=== PATIENT | male | born 1990 | race Caucasian/White ===

== ENCOUNTER 2016-07-09 04:30 | Emergency (ER) | payer BC ==
[~2016-07-09] VITALS: Ht 185.4 cm; Wt 81.6 kg
[~2016-07-09 04:30] MED LIST: HYDR-757 PO; VILA40TA PO
--- NOTE | 2016-07-09 06:54 | ED EENT ---
History of Present Illness General Chief Complaint: Dental Problems/Pain Stated Complaint: DENTAL PAIN-RECENT EXTRACTIONS Nursing Triage Note: Pt here reporting he needs pain meds now for "dry sockets". Recently returned from [place] and states Dr Mcqueen did surgery a couple days ago for extractions and root canal(s). Pt states a temporary cap fell off also. Pt states he needs more Percocet and his Grandma a nurse advised he needed to come here because of the pain. Source: patient Exam Limitations: no limitations History of Present Illness Time seen by provider: 06:49 Initial Comments The patient is a 26-year-old white male who presents this morning with the complaint of severe dental pain. He reports that he had had 2 teeth pulled before [facility] at [facility]. He reports that he has dry sockets and has had severe pain. He was unable to sleep last night. He received prescriptions of hydrocodone from the dentist on 1228 for 3 days and 07/06 also for 3 days. He was also to have his wisdom teeth pulled. He was given first amoxicillin and later clindamycin by the dentist. He reports that he was unable to take the hydrocodone in the last few days because it upset his stomach. He was informed that clindamycin is flammeus for this as well. He apparently has an appointment for next week with Dr. Mcqueen our oral surgeon. 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 Timing/Duration: last week Location: dental Prearrival Treatment: prescription meds Associated Symptoms: poor solids intake Allergies and Home Medications Allergies Coded Allergies: No Known Drug Allergies (Verified , 06/08/12) Home Medications Vilazodone Hydrochloride 40 Mg Tablet 40 MG PO DAILY (Reported) Review of Systems Constitutional: see HPI Eyes: No Symptoms Reported Nose: no symptoms reported Mouth: pain swelling Throat: no symptoms reported Respiratory: no symptoms reported Cardiovascular: no symptoms reported Gastrointestinal: loss of appetite nausea Past Yucilem-Czyslg-Ddjfhw Hx Patient Social History Alcohol Use: Denies Use Recreational Drug Use: No Smoking Status: Current Everyday Smoker Type Used: Cigarettes Recent Foreign Travel: No Contact w/Someone Who Travel: No Recent Infectious Disease Expo: No Recent Hopitalizations: No Physical Abuse Screen: No Sexual Abuse: No Immunizations Up To Date Tetanus Booster (TDap): Less than 5yrs Seasonal Allergies Seasonal Allergies: No Surgeries HX Surgeries: Yes (arm abscess post football injury) Respiratory Hx Respiratory Disorders: No Cardiovascular Hx Cardiac Disorders: No Neurological Hx Neurological Disorders: No Reproductive System Hx Reproductive Disorders: No Genitourinary Hx Genitourinary Disorders: No Gastrointestinal Hx Gastrointestinal Disorders: No Musculoskeletal Hx Musculoskeletal Disorders: No Endocrine Hx Endocrine Disorders: No HEENT HX ENT Disorders: No Cancer Hx Cancer: No Psychosocial Hx Psychiatric Problems: No Integumentary HX Skin/Integumentary Disorder: No Blood Transfusions Hx Blood Disorders: No Physical Exam Vital Signs Vital Sign - Last 12Hours 07/09/16 04:48 Temp 97.6 Pulse 94 Resp 20 B/P 146/88 Pulse Ox 97 O2 Delivery Room Air General Appearance: mild distress Eyes: bilateral eye normal inspection Ears: bilateral ear auricle normal Nose: normal inspection Mouth/Throat: dental tenderness other (evidence of them multiple caries particularly at the wisdom teeth. There is clot and evidence of extraction on the right upper had the molar) Cardiovascular: normal peripheral pulses regular rate, rhythm no edema no gallop no JVD no murmur Respiratory: chest non-tender lungs clear normal breath sounds no respiratory distress no accessory muscle use Progress/Results/Core Measures Results/Orders Vital Signs/I&O Vital Sign - Last 12Hours 07/09/16 04:48 Temp 97.6 Pulse 94 Resp 20 B/P 146/88 Pulse Ox 97 O2 Delivery Room Air Blood Pressure Mean: 107 Departure Impression Impression: Primary Impression: dental pain Disposition: 01 HOME, SELF-CARE Condition: Stable/Unchanged Departure-Patient Inst. Referrals: NO,LOCAL PHYSICIAN (PCP/Family) Primary Care Physician Patient Instructions: Dental Pain (DC) Add. Discharge Instructions: All discharge instructions reviewed with patient and/or family. Voiced understanding. Future management of severe dental issues must be received through dental professionals. Scripts Oxycodone HCl/Acetaminophen (Percocet 5-325 mg Tablet)1 Each Tablet1 Each PO QID #10 TAB Prov:KARTHIK LIU MD 07/09/16 KARTHIK LIU MD Jul 09, 2016 06:54
[2016-07-09] MEDS ORDERED: OXYC-197 PO (07:01)
[2016-07-09 07:11] VITALS: BP 141/82
== END 2016-07-09 07:11 | disposition home or self-care (01) ==
LOC: EDUNIT# 04:30 → ER 04:33
DX: G89.18 Other acute postprocedural pain (principal); K08.409 Partial loss of teeth, unspecified cause, unspecified class; F17.210 Nicotine dependence, cigarettes, uncomplicated
CPT/HCPCS: 99282

== ENCOUNTER 2016-07-29 00:04 | Emergency (ER) | payer BC ==
[~2016-07-29] VITALS: Ht 185.4 cm; Wt 81.9 kg
[~2016-07-29 00:04] MED LIST changes: +OXYC-197 PO
--- OUTSIDE RECORDS SUMMARY | 2016-07-29 00:13 | XMS REPORT | Continuity of Care Document ---
Author Author [facility] Organization [facility] Address Unknown Phone Unavailable Care Team Providers Care Assistant Printer Floor Covering Name Role Phone NO, LOCAL PHYSICIAN PCP Unavailable Insurance Providers Payer Name Policy Number Subscriber Name Relationship [facility] [id number] Hayder Gardiner Nito 18 Self / Same As Patient Advance Directives Directive Response Recorded Date/Time Advance Directives No 07/09/16 4:48am Health Care Power of Amusement Park Ride Mechanic No 07/09/16 4:48am Organ Donor No 07/09/16 4:48am Resuscitation Status Full Code 07/09/16 4:48am Chief Complaint and Reason for Visit Chief Complaint Dental Problems/Pain Reason for Visit dental pain Problems No problem information available. Medications Current Home Medications Medication Dose Units Route Directions Days/Qty Instructions Start Date Vilazodone Hydrochloride 40 Mg 40 Mg Oral Daily 06/08/12 Oxycodone Hcl/Acetaminophen 1 Each 1 Each Oral Four Times Daily 10 11/18 Past Home Medications Medication Directions Ordered Status Hydrocodone Bit/Acetaminophen 1 Each Tablet, 1 - 2 Each Oral Q 4 Hours Discontinued Social History Social History Problem Response Recorded Date/Time Alcohol Use Occasionally Uses 08/10/2012 9:03pm Recreational Drug Use Yes 08/10/2012 9:03pm Recent Foreign Travel No 07/09/2016 4:48am Recent Infectious Disease Exposure No 07/09/2016 4:48am Hospitalization with Isolation Denies 07/09/2016 4:48am Smoking Status Current Everyday Smoker 07/09/2016 4:48am Type Used Cigarettes 07/09/2016 4:48am Recent Hopitalizations No 07/09/2016 4:48am Hospitalization with Isolation Denies 07/09/2016 4:48am Query Response Start Date Stop Date Smoking Status Current Everyday Smoker Hospital Discharge Instructions No hospital discharge instructions. Plan of Care Discharge Date 07/09/16 7:11am Disposition 01 HOME, SELF-CARE Condition at Discharge Stable/Unchanged Instructions/Education Provided Dental Pain (DC) Prescriptions See Medication Section Referrals NO,LOCAL PHYSICIAN - Primary Care Physician Additional Instructions/Education All discharge instructions reviewed with patient and/or family. Voiced understanding. Future management of severe dental issues must be received through dental professionals. Functional Status No functional status results. Allergies, Adverse Reactions, Alerts No known allergies. Immunizations No immunization records. Vital Signs Acute Vital Signs Vital Response Date/Time Temperature (Fahrenheit) 97.6 degrees F (97.6 - 99.5) 07/09/2016 4:48am Temperature (Calculated Celsius) 36.29941 degrees C (36.4 - 37.5) 07/09/2016 4:48am Temperature Source Temporal 07/09/2016 4:48am Pulse Rate (adult) 94 bpm (60 - 90) 07/09/2016 4:48am Respiratory Rate 20 bpm (12 - 24) 07/09/2016 4:48am O2 Sat by Pulse Oximetry 97 % (88 - 100) 07/09/2016 4:48am Blood Pressure 146/88 mm Hg 07/09/2016 4:48am Blood Pressure Mean 107 mm Hg 07/09/2016 4:48am Pain Numeric Pain Scale 10-Worst Possible Pain 07/09/2016 4:48am Height (Feet) 6 feet 07/09/2016 4:48am Height (Inches) 1 inches 07/09/2016 4:48am Height (Calculated Centimeters) 185.865224 cm 07/09/2016 4:48am Weight (Pounds) 180 pounds 07/09/2016 4:48am Weight (Calculated Kilograms) 81.217536 kilograms 07/09/2016 4:48am Capillary Refill Capillary Refill Less Than 3 Seconds 07/09/2016 4:48am Height 6 ft 1 in Weight 180 lb Body Mass Index 23.7 kg/m^2 Results No known relevant diagnostic tests, laboratory data and/or discharge summary. Procedures No known history of procedures. Encounters Encounter Location Arrival/Admit Date Discharge/Depart Date Attending Provider Departed Emergency Room [facility] 07/09/16 4:33am 07/09 7:11am KARTHIK LIU MD Recent Diagnosis
[2016-07-29] MEDS ORDERED: clindamycin (00:25)
[2016-07-29] MEDS ORDERED: NS IV 1000 ML 1,000 ML IV ONE (00:27)
[2016-07-29] MEDS ORDERED: fentaNYL INJECTION 100 MCG/2 ML AMP IVP STA (00:27)
--- NOTE | 2016-07-29 01:55 | ED Lower Extremity ---
General Chief Complaint: Lower Extremity Stated Complaint: RT LEG PAIN,RED & SWOLLEN Nursing Triage Note: pt reports two nights ago he felt something pop in his r calf. pt reports he had been laying around since but developed redness/swelling to r leg. Nursing Sepsis Screen: Possible Sepsis Risk Source: patient, family Exam Limitations: no limitations History of Present Illness Time seen by provider: 01:05 Initial Comments Here with report of pain to the right lower extremity and swelling with redness. This has been increasing over the last 2 days with markedly increasing redness and swelling tonight. Pain when walking noted. Over-the- counter medications are not helping with the pain. Mild fever reported and noted. No breathing problems reported. Onset: other (2-3 days ago) Severity: moderate Pain/Injury Location: right leg, right knee, right foot, right ankle Method of Injury: unknown Modifying Factors: Improves With Immobilization, Worse With Jarring, Worse With Movement Allergies and Home Medications Allergies Coded Allergies: No Known Drug Allergies (Verified , 06/08/12) Home Medications (Reported) Constitutional: see HPINo chills, fever EENTM: no symptoms reported Respiratory: no symptoms reportedNo cough, No dyspnea on exertion, No short of breath Cardiovascular: no symptoms reportedNo chest pain, No palpitations Gastrointestinal: no symptoms reportedNo nausea, No vomiting Genitourinary: no symptoms reported Musculoskeletal: see HPI joint pain joint swelling muscle pain muscle stiffness Skin: see HPI change in colorNo lesions, No rash Psychiatric/Neurological: No Symptoms Reported All Other Systems Reviewed Negative Unless Noted: Yes Past Qcvypzt-Bxwfqr-Paqqke Hx Patient Social History Alcohol Use: Denies Use Recreational Drug Use: Yes Smoking Status: Current Everyday Smoker Type Used: Cigarettes Recent Foreign Travel: No Contact w/Someone Who Travel: No Recent Infectious Disease Expo: No Recent Hopitalizations: No Physical Abuse Screen: No Sexual Abuse: No Immunizations Up To Date Tetanus Booster (TDap): Less than 5yrs Seasonal Allergies Seasonal Allergies: No Surgeries HX Surgeries: Yes (arm abscess post football injury) Respiratory Hx Respiratory Disorders: No Cardiovascular Hx Cardiac Disorders: No Neurological Hx Neurological Disorders: No Reproductive System Hx Reproductive Disorders: No Genitourinary Hx Genitourinary Disorders: No Gastrointestinal Hx Gastrointestinal Disorders: No Musculoskeletal Hx Musculoskeletal Disorders: No Endocrine Hx Endocrine Disorders: No HEENT HX ENT Disorders: No Cancer Hx Cancer: No Psychosocial Hx Psychiatric Problems: No Integumentary HX Skin/Integumentary Disorder: No Blood Transfusions Hx Blood Disorders: No Reviewed Nursing Assessment Reviewed/Agree w Nursing PMH: Yes Family Medical History Significant Family History: No Pertinent Family Hx Physical Exam Vital Signs Vital Sign - Last 12Hours 07/29/16 00:21 Temp 99.9 Pulse 120 Resp 18 B/P 155/87 Capillary Refill : Less Than 3 Seconds General Appearance: WD/WN mild distress (right leg pain) HEENT: PERRL/EOMI pharynx normal Neck: full range of motion supple Cardiovascular: no murmur tachycardia Respiratory: lungs clear normal breath sounds Gastrointestinal: non tender soft Back: normal inspection no CVA tenderness no vertebral tenderness Hips: bilateral hip non-tender, bilateral hip normal inspection, bilateral hip normal range of motion Legs: right leg soft tissue tenderness, right leg swelling, right leg other ( swelling noted from the area of the knee down to the toes on the right. Erythema noted from the mid calf region down and across the foot completely. Distal pulses intact. Pain with range of motion of the knee, ankle and foot.) Neurologic/Tendon: normal sensation normal motor functions normal tendon functions Neurologic/Psychiatric: alert oriented x 3 Skin: warm/dry other (erythema and swelling as noted above.) Progress/Results/Core Measures Results/Orders Lab Results Laboratory Tests Test 07/29/16 01:55 Range/Units Alanine Aminotransferase (ALT/SGPT) 12 0-55 U/L Albumin 4.0 3.2-4.5 G/DL Alkaline Phosphatase 49 40-136 U/L Anion Gap 12 5-14 MMOL/L Aspartate Amino Transf (AST/SGOT) 10 5-34 U/L BUN/Creatinine Ratio 15 Basophils # (Auto) 0.0 0.0-0.1 10^3/uL Basophils (%) (Auto) 0 0-10 % Blood Urea Nitrogen 11 7-18 MG/DL C-Reactive Protein High Sensitivity 4.88 H 0.00-0.50 MG/DL Calcium Level 9.3 8.5-10.1 MG/DL Carbon Dioxide Level 24 21-32 MMOL/L Chloride Level 102 98-107 MMOL/L Creatinine 0.71 0.60-1.30 MG/DL D-Dimer 1.76 H 0.00-0.49 UG/ML Eosinophils # (Auto) 0.2 0.0-0.3 10^3/uL Eosinophils (%) (Auto) 2 0-10 % Estimat Glomerular Filtration Rate > 60 Glucose Level 95 70-105 MG/DL Hematocrit 36 L 40-54 % Hemoglobin 12.0 L 13.3-17.7 G/DL Lymphocytes # (Auto) 1.6 1.0-4.0 X 10^3 Lymphocytes (%) (Auto) 24 12-44 % Mean Corpuscular Hemoglobin 27 25-34 PG Mean Corpuscular Hemoglobin Concent 34 32-36 G/DL Mean Corpuscular Volume 81 80-99 FL Mean Platelet Volume 10.3 7.4-10.4 FL Monocytes # (Auto) 0.6 0.0-1.0 X 10^3 Monocytes (%) (Auto) 9 0-12 % Neutrophils # (Auto) 4.4 1.8-7.8 X 10^3 Neutrophils (%) (Auto) 65 42-75 % Platelet Count 192 130-400 10^3/uL Potassium Level 3.4 L 3.6-5.0 MMOL/L Red Blood Count 4.42 4.35-5.85 10^6/uL Red Cell Distribution Width 12.5 10.0-14.5 % Sodium Level 138 135-145 MMOL/L Total Bilirubin 0.3 0.1-1.0 MG/DL Total Protein 6.9 6.4-8.2 G/DL White Blood Count 6.8 4.3-11.0 10^3/uL My Orders Orders-HERI MORENO MD Cbc With Automated Diff (07/29/16 00:27) Comprehensive Metabolic Panel (07/29/16 00:27) Hs C Reactive Protein (07/29/16 00:27) Fibrin Degradation Products (07/29/16 00:27) Saline Lock/Iv-Start (07/29/16 00:27) Ns Iv 1000 Ml (Sodium Chloride 0.9%) (07/29/16 00:27) Fentanyl Injection (Sublimaze Injection (07/29/16 00:27) Us Venous Lower Ext Rt (07/29/16 01:30) Fentanyl Injection (Sublimaze Injection (07/29/16 02:30) Ketorolac Injection (Toradol Injection) (07/29/16 02:34) Hydromorphone Injection (Dilaudid Inject (07/29/16 02:34) Hydromorphone Injection (Dilaudid Inject (07/29/16 02:30) Ketorolac Injection (Toradol Injection) (07/29/16 02:30) Enoxaparin Injection (Lovenox Injection) (07/29/16 03:30) Medications Given in ED Current Medications Medications Dose Ordered Sig/Jessie Route Start Time Stop Time Status Last Admin Dose Admin Enoxaparin Sodium 80 mg ONCE ONCE SC 07/29/16 03:30 07/29/16 03:31 DC 07/29/16 04:02 80 MG Fentanyl Citrate 50 mcg ONCE PRN IVP 07/29/16 02:30 07/29/16 02:44 50 MCG Sodium Chloride 1,000 ml @ 0 mls/hr Q0M ONCE IV 07/29/16 00:27 07/29/16 00:29 DC 07/29/16 01:23 0 MLS/HR Vital Signs/I&O Vital Sign - Last 12Hours 07/29/16 00:21 Temp 99.9 Pulse 120 Resp 18 B/P 155/87 Blood Pressure Mean: 109 Progress Note : Progress Note Seen and evaluated. IV, labs, normal saline 1 L bolus, fentanyl 50 g IV and ultrasound right lower extremity ordered. Patient has very poor IV access. Multiple attempts by nursing and myself ultimately successful with small IV to the left wrist per nursing. Unable to draw blood. Artery stick approved for blood draw. Monitor patient. Ultrasound obtained. Has lesser saphenous vein thrombosis noted in the superficial system. Pain controlled after repeat dosing of fentanyl and Dilaudid 1 mg IV. Also received Toradol 30 mg IV. Patient will likely need anticoagulation due to the large thrombosis and history of DVT previously in the right arm. I will initiate Lovenox. Patient has no local physician but is interested in seeking care with Sin Murray M.D. I will send chart to him. We will initiate outpatient treatment anticoagulation with Eliquis. Discharged home with return precautions. Patient verbalize understanding instructions and agreement with plan. Diagnostic Imaging Diagonstic Imaging: Ultrasound Plain Films/CT/US/NM/MRI: leg Comments Thrombosis of the lesser saphenous vein from the calf to the ankle, part of the superficial vein assist him. No evidence of deep venous thrombosis. Per statrad. Reviewed: Reviewed Night [facility] Study Departure Impression Impression: Primary Impression: Acute superficial venous thrombosis of right lower extremity Disposition: HOME, SELF-CARE Condition: Stable Departure-Patient Inst. Decision time for Depature: 04:09 Referrals: NO,LOCAL PHYSICIAN (PCP) Primary Care Physician SIN MURRAY MD Patient Instructions: Deep Vein Thrombosis (Blood Clots in the Legs) Add. Discharge Instructions: All discharge instructions reviewed with patient and/or family. Voiced understanding. You have a superficial thrombosis of the right leg although moderate in size. Instructions for deep vein thrombosis given for information. Take medications as directed. Follow-up with your doctor this week for recheck and further evaluation. Return for worse pain, weakness, breathing problems, swelling or other concerns as needed. You may elevate the leg and you may use warm compresses to the area of concern as needed. Scripts Hydrocodone/Acetaminophen (Hydrocodon-Acetaminoph 7.5-325)1 Each Tablet1 Each PO Q6H #14 TAB Prov:HERI MORENO MD 07/29/16 Apixaban (Eliquis)5 Mg Tablet5 Mg PO BID #60 TAB Start medication after completion of the 10 mg twice daily dosing Prov:HERI MORENO MD 07/29/16 Apixaban (Eliquis)5 Mg [id number] Mg PO BID #14 TAB 2 TABLETS TWICE DAILY X 7 DAYS Prov:HERI MORENO MD 07/29/16 Copy Copies To 1: SIN MURRAY MD, TIMOTHY D MD Jul 29, 2016 01:55
[2016-07-29 02:01] LABS: BASOPHILS % (AUTO) 0 % (0-10); EOSINOPHILS # (AUTO) 0.2 10^3/uL (0.0-0.3); EOSINOPHILS % (AUTO) 2 % (0-10); LYMPHOCYTES # (AUTO) 1.6 X 10^3 (1.0-4.0); LYMPHOCYTES % (AUTO) 24 % (12-44); MEAN CORPUSCULAR HEMOGLOBIN 27 PG (25-34); MEAN CORPUSCULAR HGB CONC 34 G/DL (32-36); MEAN CORPUSCULAR VOLUME 81 FL (80-99); MEAN PLATELET VOLUME 10.3 FL (7.4-10.4); MONOCYTES # (AUTO) 0.6 X 10^3 (0.0-1.0); MONOCYTES % (AUTO) 9 % (0-12); NEUTROPHILS # (AUTO) 4.4 X 10^3 (1.8-7.8); NEUTROPHILS % (AUTO) 65 % (42-75); PLATELET COUNT 192 10^3/uL (130-400); RED BLOOD COUNT 4.42 10^6/uL (4.35-5.85); RED CELL DISTRIBUTION WIDTH 12.5 % (10.0-14.5); WHITE BLOOD COUNT 6.8 10^3/uL (4.3-11.0)
[2016-07-29 02:24] LABS: ALANINE AMINOTRANSFERASE 12 U/L (0-55); ANION GAP 12 MMOL/L (5-14); ASPARTATE AMINO TRANSFERASE 10 U/L (5-34); BILIRUBIN,TOTAL 0.3 MG/DL (0.1-1.0); BLOOD UREA NITROGEN 11 MG/DL (7-18); BUN/CREATININE RATIO 15; CALCIUM 9.3 MG/DL (8.5-10.1); CARBON DIOXIDE 24 MMOL/L (21-32); CHLORIDE 102 MMOL/L (98-107); CREATININE SERUM 0.71 MG/DL (0.60-1.30); GFR ESTIMATED > 60; GLUCOSE 95 MG/DL (70-105); POTASSIUM 3.4 MMOL/L (3.6-5.0); SODIUM 138 MMOL/L (135-145); TOTAL PROTEIN 6.9 G/DL (6.4-8.2); hs C REACTIVE PROTEIN 4.88 MG/DL (0.00-0.50)
[2016-07-29] MEDS ORDERED: fentaNYL INJECTION 100 MCG/2 ML AMP IVP PRN (02:30)
[2016-07-29] MEDS ORDERED: HYDROmorphone (DILAUDID) 2 MG/ML VIAL ONE (02:30)
[2016-07-29] MEDS ORDERED: KETOROLAC 30 MG/ML VIAL ONE (02:30)
[2016-07-29] MEDS ORDERED: KETOROLAC 30 MG/ML VIAL IVP STA (02:34)
[2016-07-29] MEDS ORDERED: HYDROmorphone (DILAUDID) 2 MG/ML VIAL IVP STA (02:34)
[2016-07-29] MEDS ORDERED: ENOXAPARIN 80 MG/0.8 ML (LOVENOX) SYR SC ONE (03:30)
[2016-07-29] MEDS ORDERED: APIX5TAB PO (04:13)
[2016-07-29] MEDS ORDERED: HYDR-3816 PO (04:13)
[2016-07-29 04:19] VITALS: BP 90/57
--- NOTE | 2016-07-29 07:00 | Diagnostic Imaging Report ---
PROCEDURE: US right lower extremity venous. TECHNIQUE: Multiple real-time grayscale images were obtained over the right lower extremity in various projections. Additional duplex Doppler and color Doppler images were also obtained. INDICATION: Right leg pain. FINDINGS: There is thrombus present throughout the lesser saphenous vein from the calf to the ankle. The deep venous system is visualized and widely patent. Calf compression shows normal augmentation flow at the popliteal level. IMPRESSION: Thrombosis of the superficial venous system involving the lesser saphenous vein in the calf. No evidence of deep venous thrombosis. These findings are in agreement with the preliminary report. Dictated by: Dictated on workstation # [id number]
== END 2016-07-29 04:19 | disposition home or self-care (01) ==
LOC: EDUNIT# 00:04 → ER 00:08
DX: I82.811 Embolism and thrombosis of superficial veins of right lower extremity (principal)
CPT/HCPCS: 36415; 80053; 85025; 85379; 86141; 96361; 96372; 96374; 96375; 96376

== ENCOUNTER 2016-08-18 16:06 | Emergency (ER) | payer BC ==
[~2016-08-18] VITALS: Ht 185.4 cm; Wt 83.9 kg
[~2016-08-18 16:06] MED LIST changes: +APIX5TAB PO; +HYDR-3816 PO; +clindamycin
--- OUTSIDE RECORDS SUMMARY | 2016-08-18 16:11 | XMS REPORT | Continuity of Care Document ---
Author Author [facility] Organization [facility] Address Unknown Phone Unavailable Care Team Providers Care Power Operator Name Role Phone NO, LOCAL PHYSICIAN PCP Unavailable Insurance Providers Payer Name Policy Number Subscriber Name Relationship [facility] [id number] Hayder Gardiner Nito 18 Self / Same As Patient Advance Directives Directive Response Recorded Date/Time Advance Directives No 07/09/16 4:48am Health Care Power of Pesticide Use Medical Coordinator No 07/09/16 4:48am Organ Donor No 07/09/16 [...] - 99.5) 07/09/2016 4:48am Temperature (Calculated Celsius) 36.49009 degrees C (36.4 - 37.5) 07/09/2016 4:48am [...] 1 inches 07/09/2016 4:48am Height (Calculated Centimeters) 185.336583 cm 07/09/2016 4:48am Weight (Pounds) 180 pounds 07/09/2016 4:48am Weight (Calculated Kilograms) 81.149572 kilograms 07/09/2016 4:48am Capillary Refill Capillary Refill Less Than 3 Seconds 07/09/2016 4:48am Height 6 ft 1 in Weight 180 lb Body Mass Index 23.7 kg/m^2 Results No known relevant diagnostic tests, laboratory data and/or discharge summary. Procedures No known history of procedures. Encounters Encounter Location Arrival/Admit Date Discharge/Depart Date Attending Provider Departed Emergency Room [facility] 07/09/16 4:33am 07/09 7:11am KARTHIK LIU MD Recent Diagnosis
[2016-08-18] MEDS ORDERED: OXYC10TA7 (16:25)
[2016-08-18] MEDS ORDERED: ALPR1TAB7 (16:25)
[2016-08-18] MEDS ORDERED: BUPR300T51 (16:25)
[2016-08-18] MEDS ORDERED: NS IV 1000 ML 1,000 ML IV ONE (16:38)
--- NOTE | 2016-08-18 16:59 | Diagnostic Imaging Report ---
INDICATION: Bilateral leg swelling. DISCUSSION: Single portable upright view of the chest was obtained, comparison 05/12/2007. No adverse interval change. The heart and lungs remain normal. No pleural fluid or pneumothorax. No acute osseous abnormality. IMPRESSION: 1. Negative portable chest. Dictated by: Dictated on workstation # [id number]
--- NOTE | 2016-08-18 17:09 | ED General ---
General Chief Complaint: Lower Extremity Stated Complaint: POSSIBLE BLOOD CLOTS Nursing Triage Note: AMB TO ROOM WAS CALLED ABOUT THIS PATIENT FROM 'S OFFICE APX [phone] THAT HE WAS BEING SENT TO ED FOR EVAL AND ADMIT. 'S OFFICE WAS INFORMED THAT HE DID NOT SHOW. UP AROUND 1500 PATIENT HERE HOW REPORTS HERE FOR ADMIT AND TO GET HIM BACK ON HIS PAIN MEDS. WHILE TRIGING PATIENT OPENING A LG CAN OF RED BULL INFORMED HE COULD NOT HAVE IT. PATIENT GAVE CAN TO FEMALE AT BEDSIDE SHE PLACED IT ON BEDSIDE TABLE. REPORTS HAS BEEN OUT OF PAIN MEDS FOR 2 DAYS Nursing Sepsis Screen: No Definite Risk Source of Information: Patient, Old Records, Other (clinic notes) Exam Limitations: No Limitations History of Present Illness Time Seen by Provider: 16:20 Initial Comments This 26-year-old young man presents to the emergency room with complaints of worsening swelling and pain in his lower extremities. Symptoms were initially only on the right lower extremity when he was diagnosed with the superficial venous thrombosis. However, there is now swelling and erythema of the left foot as well. He was diagnosed with superficial saphenous venous thrombosis and has been on Eliquis. He reports missing about 3 doses over the past month. Anticoagulation was started because of prior history of DVT. He was seen at Dr. Sin Murray's office this morning. We were notified by his office that he would be presenting to the ER for further workup as he was quite febrile with temperature around 103 and tachycardic and heart rate around 130. Patient did not show for several hours. Patient reports he ran out of his pain medications on Wednesday. He states he has not been using enough pain medications recently to be going through withdrawal. He denies any alcohol use since [place] time. He denies any drug use. When confronted about his prior drug screen positive for marijuana, he stated "I ate some and did not realize it would stay in my system so long." Nursing staff is having a difficult time finding vascular access due to poor vein quality. They also report markings on the arms suggestive of track brooks. 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 He does not admit to any IV drugs. However, the inflammatory conditions and superficial venous thrombosis of his legs is concerning. He is being evaluated for possible possible sepsis. Allergies and Home Medications Allergies Coded Allergies: No Known Drug Allergies (Verified , 12/5/12) Home Medications (Reported) Alprazolam 1 Mg Tablet #30 (Reported) Apixaban 5 Mg Tablet #14 10 MG PO BID 2 TABLETS TWICE DAILY X 7 DAYS Prescribed by: HERI MORENO on 07/29/16412 Apixaban 5 Mg Tablet #60 5 MG PO BID Start medication after completion of the 10 mg twice daily dosing Prescribed by: HERI MORENO on 07/29/16412 Bupropion HCl 300 Mg Tab.er.24h #30 (Reported) Clindamycin HCl 300 Mg Capsule #40 300 MG PO QID Prescribed by: RIK PANIAGUA on 08/18/161909 Hydrocodone/Acetaminophen 1 Each Tablet #14 1 EACH PO Q6H Prescribed by: HERI MORENO on 07/29/16412 Hydrocodone/Acetaminophen 1 Each Tablet #8 1 EACH PO Q6H PRN PRN PAIN Prescribed by: RIK PANIAGUA on 08/18/161909 Oxycodone HCl 10 Mg Tablet #21 (Reported) Constitutional: see HPI fever EENTM: no symptoms reported Respiratory: no symptoms reported Cardiovascular: no symptoms reported Gastrointestinal: no symptoms reported Genitourinary: no symptoms reported Musculoskeletal: see HPI Skin: see HPI Psychiatric/Neurological: No Symptoms Reported Hematologic/Lymphatic: No Symptoms Reported Past Zwyqude-Dshrtc-Rovwzu Hx Patient Social History Type Used: Cigarettes Recent Foreign Travel: No Contact w/Someone Who Travel: No Recent Infectious Disease Expo: No Recent Hopitalizations: No Immunizations Up To Date Tetanus Booster (TDap): Less than 5yrs Seasonal Allergies Seasonal Allergies: No Surgeries HX Surgeries: Yes (arm abscess post football injury) Respiratory Hx Respiratory Disorders: No Cardiovascular Hx Cardiac Disorders: Yes Cardiac Disorders: Deep Vein Thrombosis (right arm) Neurological Hx Neurological Disorders: No Reproductive System Hx Reproductive Disorders: No Genitourinary Hx Genitourinary Disorders: No Gastrointestinal Hx Gastrointestinal Disorders: No Musculoskeletal Hx Musculoskeletal Disorders: No Endocrine Hx Endocrine Disorders: No HEENT HX ENT Disorders: No Cancer Hx Cancer: No Psychosocial Hx Psychiatric Problems: No Integumentary HX Skin/Integumentary Disorder: No Blood Transfusions Hx Blood Disorders: No Family Medical History Significant Family History: No Pertinent Family Hx Physical Exam-Suspected Sepsis Physical Exam Vital Signs Capillary Refill : Less Than 3 Seconds Blood Pressure Mean: 87 General Appearance: No Apparent Distress WD/WN HEENT: PERRL/EOMI TMs Normal Normal ENT Inspection Pharynx Normal Neck: Normal Inspection Respiratory: Lungs Clear Normal Breath Sounds No Accessory Muscle Use No Respiratory Distress Cardiovascular: No Edema No Murmur Normal Peripheral Pulses Tachycardia Gastrointestinal: Normal Bowel Sounds Non Tender Soft Extremity: Other (marked bilateral lower extremity pitting edema that is tender to the touch. Capillary refill is brisk. Pedal pulses are strong. Erythema extending throughout the foot on the left and beyond the ankle on the right.) Neurologic/Psychiatric: Alert Oriented x3 No Motor/Sensory Deficits Normal Mood/Affect dormitory counselor II-XII Norm as Tested Skin: normal color warm/dry other (erythema and heat involving the right lower leg and foot and part of the left foot) Progress/Results/Core Measures Suspected Sepsis Recent Fever Within 48 Hours: No Infection Criteria Present: None New/Unexplained Altered Menta: No Sepsis Screen: No Definite Risk Sepsis Diagnosis: SIRS Temperature:98.6 Pulse: Respiratory Rate: Blood Pressure 121 /70 Mean: 87 Results/Orders Lab Results Micro Results My Orders Medications Given in ED Vital Signs/I&O Capillary Refill : Less Than 3 Seconds Blood Pressure Mean: 87 Progress Note #1: Time: 17:19 Progress Note Septic workup is in progress. IV fluids have been ordered. Progress Note #2: Progress Note After workup was complete, was determined patient has not septic. However, there was concerned about possible concomitant cellulitis of the lower extremities. Clindamycin was prescribed. Patient received a liter of IV fluids in the emergency room. ECG Initial ECG Impression Date: Aug 18, 2016 Initial ECG Impression Time: 17:37 Initial ECG Rate: 99 Initial ECG Rhythm: Normal Sinus Initial ECG Intervals: Normal Initial ECG Impression: Normal Comment Normal sinus rhythm with no ST elevation or depression. No abnormal intervals or axis deviation. Diagnostic Imaging Diagonstic Imaging: Xray Plain Films/CT/US/NM/MRI: chest Comments Chest x-ray viewed by me and report reviewed. See report below: NAME: ALONSO ORTEGA MED REC#: [id number] PT STATUS: REG ER : 1990 PHYSICIAN: RIK LOERA MD ADMIT DATE: 08/18/16/ER Draft Date of Exam:08/18/16 CHEST 1 VIEW, AP/PA ONLY INDICATION: Bilateral leg swelling. DISCUSSION: Single portable upright view of the chest was obtained, comparison 05/12/2007. No adverse interval change. The heart and lungs remain normal. No pleural fluid or pneumothorax. No acute osseous abnormality. IMPRESSION: 1. Negative portable chest. Dictated on workstation # [id number] Dict: 08/18/16 1654 Trans: 08/18/16 1659 [facility] [id number] Interpreted by: RUSSELL SZYMANSKI MD Departure Impression Impression: Primary Impression: Acute superficial venous thrombosis of right lower extremity Additional Impressions: Cellulitis Qualified Code: L03.119 - Cellulitis of unspecified part of limb positive methamphetamine drug screen Disposition: HOME, SELF-CARE Condition: Improved Departure-Patient Inst. Decision time for Depature: 18:50 Referrals: SIN MURRAY MD (PCP/Family) Primary Care Physician Patient Instructions: Cellulitis (Skin Infection), Adult (DC) Add. Discharge Instructions: Return to care if symptoms worsen. Complete your antibiotics as prescribed. Follow-up with Dr. Murray on or Wednesday. Call tomorrow for an appointment time. Drink plenty of clear liquids and avoid excessive stimulants such as energy drinks, nicotine, illicit substances, etc. Elevate your legs as much as possible to the level of your heart. All discharge instructions reviewed with patient and/or family. Voiced understanding. Scripts Hydrocodone/Acetaminophen (Hydrocodon -Acetaminophen 5-325)1 Each Tablet1 Each PO Q6H PRN PAIN #8 TAB Prov:RIK LOERA MD 08/18/16 Clindamycin HCl 300 Mg [id number] Mg PO QID #40 CAP Prov:RIK LOERA MD 08/18/16 RIK LOERA MD Aug 18, 2016 17:09 Mean Corpuscular Hemoglobin 27 25-34 PG Mean Corpuscular Hemoglobin Concent 33 32-36 G/DL Mean Corpuscular Volume 81 80-99 FL Mean Platelet Volume 11.3 H 7.4-10.4 FL Monocytes # (Auto) 0.8 0.0-1.0 X 10^3 Monocytes (%) (Auto) 10 0-12 % Neutrophils # (Auto) 5.1 1.8-7.8 X 10^3 Neutrophils (%) (Auto) 64 42-75 % Platelet Count 159 130-400 10^3/uL Potassium Level 4.1 3.6-5.0 MMOL/L Prothrombin Time 14.2 12.2-14.7 SEC Red Blood Count 4.25 L 4.35-5.85 10^6/uL Red Cell Distribution Width 13.2 10.0-14.5 % Serum Alcohol < 10 <10 MG/DL Sodium Level 138 135-145 MMOL/L Total Bilirubin 0.3 0.1-1.0 MG/DL Total Protein 6.9 6.4-8.2 G/DL White Blood Count 8.0 4.3-11.0 10^3/uL Ur Tricyclic Antidepressants Screen NEGATIVE NEGATIVE Urine Amphetamines Screen POSITIVE H NEGATIVE Urine Bacteria NEGATIVE /HPF Urine Barbiturates Screen NEGATIVE NEGATIVE Urine Benzodiazepines Screen POSITIVE H NEGATIVE Urine Bilirubin NEGATIVE NEGATIVE Urine Cannabinoids Screen NEGATIVE NEGATIVE Urine Casts NONE /LPF Urine Clarity CLEAR Urine Cocaine Screen NEGATIVE NEGATIVE Urine Color YELLOW Urine Crystals NONE /LPF Urine Culture Indicated NO Urine Glucose (UA) NEGATIVE NEGATIVE Urine Ketones NEGATIVE NEGATIVE Urine Leukocyte Esterase NEGATIVE NEGATIVE Urine Methadone Screen NEGATIVE NEGATIVE Urine Methamphetamines Screen POSITIVE H NEGATIVE Urine Mucus LARGE H /LPF Urine Nitrite NEGATIVE NEGATIVE Urine Opiates Screen POSITIVE H NEGATIVE Urine Oxycodone Screen POSITIVE H NEGATIVE Urine Phencyclidine Screen NEGATIVE NEGATIVE Urine Propoxyphene Screen NEGATIVE NEGATIVE Urine Protein 1+ H NEGATIVE Urine RBC NONE /HPF Urine RBC (Auto) NEGATIVE NEGATIVE Urine Specific [place] 1.020 1.016-1.022 Urine Urobilinogen NORMAL NORMAL MG/DL Urine WBC 0-2 /HPF Urine pH 6 5-9 Micro Results Microbiology 08/18/16 Influenza Types A,B Antigen ([place]) - Final, Complete My Orders Orders-RIK LOERA MD Cbc With Automated Diff (08/18/16 16:38) Comprehensive Metabolic Panel (08/18/16 16:38) Lactic Acid Analyzer (08/18/16 16:38) Blood Culture (08/18/16 16:38) Sputum Culture (08/18/16 16:38) Ua Culture If Indicated (08/18/16 16:38) Protime With Inr (08/18/16 16:38) Partial Thromboplastin Time (08/18/16 16:38) Chest 1 View, Ap/Pa Only (08/18/16 16:38) Saline Lock/Iv-Start (08/18/16 16:38) Vital Signs Adult Sepsis Patie Q1HR (08/18/16 16:38) Remove Rings In Anticipation O (08/18/16 16:38) Influenza A And B Antigens (08/18/16 16:38) Hs C Reactive Protein (08/18/16 16:38) Erythrocyte Sedimentation Rate (08/18/16 16:38) Alcohol (08/18/16 16:38) Drug Screen Stat (Urine) (08/18/16 16:38) Ns Iv 1000 Ml (Sodium Chloride 0.9%) (08/18/16 16:38) Monitor-Rhythm Ecg Trace Only (08/18/16 16:40) Ekg Tracing (08/18/16 17:19) Medications Given in ED Current Medications Medications Dose Ordered Sig/Jessie Route Start Time Stop Time Status Last Admin Dose Admin Sodium Chloride 1,000 ml @ 0 mls/hr Q0M ONCE IV 08/18/16 16:38 08/18/16 16:41 DC 08/18/16 17:30 1,000 MLS/HR Vital Signs/I&O Vital Sign - Last 12Hours 08/18/16 08/18/16 16:13 17:37 Temp 98.6 Pulse 99 Resp 18 B/P 121/70 105/46 Pulse Ox 98 99 O2 Delivery Room Air Room Air Capillary Refill : Less Than 3 Seconds Blood Pressure Mean: 87 Progress Note : Time: 17:19 Progress Note Septic workup is in progress. IV fluids have been ordered. ECG Initial ECG Impression Date: Aug 18, 2016 Initial ECG Impression Time: 17:37 Initial ECG Rate: 99 Initial ECG Rhythm: Normal Sinus Initial ECG Intervals: Normal Initial ECG Impression: Normal Comment Normal sinus rhythm with no ST elevation or depression. No abnormal intervals or axis deviation. Diagnostic Imaging Diagonstic Imaging: Xray Plain Films/CT/US/NM/MRI: chest Comments Chest x-ray viewed by me and report reviewed. See report below: NAME: ALONSO ORTEGA MED REC#: [id number] PT STATUS: REG ER : 1990 PHYSICIAN: RIK LOERA MD ADMIT DATE: 08/18/16/ER Draft Date of Exam:08/18/16 CHEST 1 VIEW, AP/PA ONLY INDICATION: Bilateral leg swelling. DISCUSSION: Single portable upright view of the chest was obtained, comparison 05/12/2007. No adverse interval change. The heart and lungs remain normal. No pleural fluid or pneumothorax. No acute osseous abnormality. IMPRESSION: 1. Negative portable chest. Dictated on workstation # [id number] Dict: 08/18/16 1654 Trans: 08/18/16 1659 [facility] [id number] Interpreted by: RUSESLL SZYMANSKI MD Departure Impression Impression: Primary Impression: Acute superficial venous thrombosis of right lower extremity Additional Impressions: Cellulitis Qualified Code: L03.119 - Cellulitis of unspecified part of limb positive methamphetamine drug screen Disposition: HOME, SELF-CARE Condition: Improved Departure-Patient Inst. Decision time for Depature: 18:50 Referrals: SIN MURRAY MD (PCP/Family) Primary Care Physician Patient Instructions: Cellulitis (Skin Infection), Adult (DC) Add. Discharge Instructions: Return to care if symptoms worsen. Complete your antibiotics as prescribed. Follow-up with Dr. Murray on or Wednesday. Call tomorrow for an appointment time. Drink plenty of clear liquids and avoid excessive stimulants such as energy drinks, nicotine, illicit substances, etc. Elevate your legs as much as possible to the level of your heart. All discharge instructions reviewed with patient and/or family. Voiced understanding. Scripts Hydrocodone/Acetaminophen (Hydrocodon -Acetaminophen 5-325)1 Each Tablet1 Each PO Q6H PRN PAIN #8 TAB Prov:RIK LOERA MD 08/18/16 Clindamycin HCl 300 Mg [id number] Mg PO QID #40 CAP Prov:RIK LOERA MD 08/18/16 RIK LOERA MD Aug 18, 2016 17:09
[2016-08-18 17:19] LABS: BASOPHILS % (AUTO) 0 % (0-10); EOSINOPHILS # (AUTO) 0.1 10^3/uL (0.0-0.3); EOSINOPHILS % (AUTO) 2 % (0-10); LYMPHOCYTES # (AUTO) 1.9 X 10^3 (1.0-4.0); LYMPHOCYTES % (AUTO) 24 % (12-44); MEAN CORPUSCULAR HEMOGLOBIN 27 PG (25-34); MEAN CORPUSCULAR HGB CONC 33 G/DL (32-36); MEAN CORPUSCULAR VOLUME 81 FL (80-99); MEAN PLATELET VOLUME 11.3 FL (7.4-10.4); MONOCYTES # (AUTO) 0.8 X 10^3 (0.0-1.0); MONOCYTES % (AUTO) 10 % (0-12); NEUTROPHILS # (AUTO) 5.1 X 10^3 (1.8-7.8); NEUTROPHILS % (AUTO) 64 % (42-75); PLATELET COUNT 159 10^3/uL (130-400); RED BLOOD COUNT 4.25 10^6/uL (4.35-5.85); RED CELL DISTRIBUTION WIDTH 13.2 % (10.0-14.5)
[2016-08-18 17:31] LABS: INR 1.1 (0.8-1.4); PROTHROMBIN TIME PATIENT 14.2 SEC (12.2-14.7)
[2016-08-18 17:37] VITALS: BP 105/46
[2016-08-18 17:40] LABS: ALANINE AMINOTRANSFERASE 10 U/L (0-55); ALBUMIN 3.8 G/DL (3.2-4.5); ANION GAP 13 MMOL/L (5-14); ASPARTATE AMINO TRANSFERASE 25 U/L (5-34); BILIRUBIN,TOTAL 0.3 MG/DL (0.1-1.0); BLOOD UREA NITROGEN 8 MG/DL (7-18); BUN/CREATININE RATIO 11; CALCIUM 9.2 MG/DL (8.5-10.1); CARBON DIOXIDE 24 MMOL/L (21-32); CHLORIDE 101 MMOL/L (98-107); CREATININE SERUM 0.75 MG/DL (0.60-1.30); GFR ESTIMATED > 60; GLUCOSE 99 MG/DL (70-105); POTASSIUM 4.1 MMOL/L (3.6-5.0); SODIUM 138 MMOL/L (135-145); TOTAL PROTEIN 6.9 G/DL (6.4-8.2); hs C REACTIVE PROTEIN 5.81 MG/DL (0.00-0.50)
[2016-08-18 17:44] LABS: ALCOHOL < 10 MG/DL (<10)
[2016-08-18 17:53] LABS: BILIRUBIN,URINE NEGATIVE (NEGATIVE); KETONES,URINE NEGATIVE (NEGATIVE); LEUKOCYTE ESTERASE ,URINE NEGATIVE (NEGATIVE); NITRITE,URINE NEGATIVE (NEGATIVE); PH,URINE 6 (5-9); PROTEIN,URINE 1+ (NEGATIVE); UROBILINOGEN,URINE NORMAL (NORMAL)
[2016-08-18 18:03] LABS: WBC,URINE 0-2 /HPF
[2016-08-18 18:23] LABS: ERYTHROCYTE SEDIMENTATION RATE 21 MM/HR (0-15)
[2016-08-18] MEDS ORDERED: CLIN300C11 PO (19:10)
[2016-08-18] MEDS ORDERED: HYDR-3812 PO (19:10)
[2016-08-18 19:18] VITALS: BP 131/79
== END 2016-08-18 19:18 | disposition home or self-care (01) ==
LOC: EDUNIT# 16:06 → ER 16:07
DX: I82.811 Embolism and thrombosis of superficial veins of right lower extremity (principal); L03.115 Cellulitis of right lower limb; L03.116 Cellulitis of left lower limb; F15.10 Other stimulant abuse, uncomplicated; Z79.01 Long term (current) use of anticoagulants
CPT/HCPCS: 36415; 71010; 80053; 80306; 80320; 81000; 83605; 85025; 85610; 85652; 85730; 86141; 87040; 87804; 93005; 93041; 96360

== ENCOUNTER → 2020-03-18 | Outpatient (CLI) | payer BC ==
[~2020-03-18] MED LIST changes: +ACHD5005 PO; +ALPR1TAB7; +BUPR300T98; +CLIN300C11 PO; +HYDR-34 PO; -HYDR-3816 PO; -OXYC-197 PO; +OXYC10TA7; +OXYC1TAB87 PO
== END ==
LOC: WOUNDCARE 13:09
PROVIDERS: ATTEND Surgery
DX: L02.426 Furuncle of left lower limb (principal); F11.21 Opioid dependence, in remission
CPT/HCPCS: A6260; G0463; 99203

== ENCOUNTER → 2020-03-21 | Outpatient (CLI) | payer BC | LOC: WOUNDCARE 13:35 | PROVIDERS: ATTEND Surgery | DX: L95.8 Other vasculitis limited to the skin (principal); L02.426 Furuncle of left lower limb; I96 Gangrene, not elsewhere classified; F11.21 Opioid dependence, in remission | CPT/HCPCS: 99212 ==

== ENCOUNTER 2022-02-10 08:35 | Emergency (ER) | payer SELFPAY ==
[~2022-02-10] VITALS: Ht 185.4 cm; Wt 83.9 kg
[~2022-02-10 08:35] MED LIST changes: +CLIN-144 PO; -CLIN300C11 PO
--- NOTE | 2022-02-10 08:56 | ED Chest Pain ---
General Chief Complaint: Chest Pain Stated Complaint: FATIGUE/COLD SWEATS/CHEST PAIN Source: patient, family (grandmother) Exam Limitations: no limitations History of Present Illness Date Seen by Provider: Feb 10, 2022 Time Seen by Provider: 08:40 Initial Comments Patient is a 31-year-old male who presents to the emergency department today with a chief complaint of excessive fatigue, feeling chilled, diaphoresis, diffuse body aches and muscle aches and chest tightness. Patient states symptom onset 3 days ago. He has been under increased stress thinking he was kicked out of his house. He states this was a result of "bad decisions". He states when he was finally let back into the house he has slept for about 24 hours. He has not taken anything for his symptoms. He has a history of severe anxiety and initially thought all his symptoms were related to that but he states they have continued to worsen in spite of his alprazolam. He denies fever. He occasionally has a cough. He is COVID vaccinated with 1 booster. He tells me he has a history of a familial clotting disorder. He is on daily Eliquis. He also tells me he has been advised he has congestive heart failure, 2 or 3 years ago. He tells me he has a history of "tricuspid valve failure". no routine cardiology follow-up. His primary care doctor tells him to limit his activity to 2 hours at a time. He is mostly sedentary. He states he went to [facility] 3 days ago and they told him he might of had a "mild heart attack". He cannot recall what type of the work-up they did on him at that time. He smokes cigarettes daily. He uses marijuana and occasionally mushrooms. No daily alcohol use. , Review of systems reviewed and negative except as stated. Timing/Duration: 2-3 days Severity/Quality: tightness Location: central Radiation: no radiation Activities at Onset: none ASA po ONCOLOGY RESEARCH RN: No NTG SL ONCOLOGY RESEARCH RN: No Associated Symptoms: diaphoresis, fatigue, fever/chills, weakness Allergies and Home Medications Allergies Coded Allergies: No Known Drug Allergies (Verified , 06/08/12) Patient Home Medication List Home Medication List Reviewed: Yes Alprazolam (Alprazolam) 1 Mg Tablet, (Reported) Entered as Reported by: JELLY JHAVERI on 08/18/16 9036 Apixaban (Eliquis) 5 Mg Tablet, 10 MG PO BID Prescribed by: HERI MORENO on 07/29/16412 Apixaban (Eliquis) 5 Mg Tablet, 5 MG PO BID Prescribed by: HERI MORENO on 07/29/16412 Bupropion HCl (Bupropion Xl) 300 Mg Tab.er.24h, (Reported) Entered as Reported by: JELLY JHAVERI on 08/18/161624 Clindamycin HCl (Clindamycin HCl) 300 Mg Capsule, 300 MG PO QID Prescribed by: RIK PANIAGUA on 08/18/161909 Hydrocodone Bit/Acetaminophen (Lortab 7.5 Mg Tablet) 1 Each Tablet, 1 EACH PO Q6H Prescribed by: HERI MORENO on 07/29/16412 Hydrocodone Bit/Acetaminophen (Lortab 5 Mg Tablet) 1 Each Tablet, 1 EACH PO Q6H PRN for PAIN Prescribed by: RIK PANIAGUA on 08/18/161909 Oxycodone HCl (Oxycodone HCl) 10 Mg Tablet, (Reported) Entered as Reported by: JELLY JHAVERI on 08/18/161624 [clindamycin] , (Reported) Entered as Reported by: GERRI GUTIERREZ on 07/29/1624 Review of Systems Review of Systems Constitutional: see HPI, diaphoresis, malaise EENTM: No Symptoms Reported Respiratory: No Symptoms Reported Cardiovascular: Chest Pain ("Tightness") Gastrointestinal: Nausea, Vomiting (X1) Genitourinary: No Symptoms Reported Musculoskeletal: muscle cramps (Diffuse body) Skin: no symptoms reported Psychiatric/Neurological: Anxiety All Other Systems Reviewed Negative Unless Noted: Yes Past Hdsvkwl-Yfocgp-Nritxi Hx Immunizations Up To Date Tetanus Booster (TDap): Less than 5yrs Seasonal Allergies Seasonal Allergies: No Past Medical History Deep Vein Thrombosis Reproductive Disorders: No Family Medical History No Pertinent Family Hx Physical Exam Vital Signs Vital Signs - First Documented 02/10/22 08:40 Temp 36.7 Pulse 89 Resp 18 B/P (MAP) 117/63 (81) Pulse Ox 98 O2 Delivery Room Air Capillary Refill : Height, Weight, BMI Height: 6'1" Weight: 185lbs. 8.0oz. 83.509875aj; 25.06 BMI Method:Stated General Appearance: WD/WN, Anxious HEENT: PERRL/EOMI Neck: Normal Inspection Respiratory: Lungs Clear, Normal Breath Sounds, No Accessory Muscle Use, No Respiratory Distress Cardiovascular: Regular Rate, Rhythm, Normal Peripheral Pulses, Systolic Murmur (Soft systolic murmur heard best at the left lower sternal border) Gastrointestinal: Non Tender, Soft Extremity: Normal Capillary Refill, Normal Inspection, Normal Range of Motion, Non Tender, No Calf Tenderness, No Pedal Edema Neurologic/Psychiatric: Alert, Oriented x3, No Motor/Sensory Deficits, Other Skin: Normal Color (Very anxious), Warm/Dry Progress/Results/Core Measures Results/Orders Lab Results Laboratory Tests Test 02/10/22 08:57 02/10/22 09:33 02/10/22 09:40 02/10/22 10:10 Range/Units SARS-CoV-2 RNA (RT-PCR) Not Detected Not Detecte Prothrombin Time 15.1 H 12.2-14.7 SEC INR Comment 1.2 0.8-1.4 Activated Partial Thromboplast Time 38 H 24-35 SEC White Blood Count 14.9 H 4.3-11.0 10^3/uL Red Blood Count 4.49 4.30-5.52 10^6/uL Hemoglobin 12.0 L 13.3-17.7 g/dL Hematocrit 37 L 40-54 % Mean Corpuscular Volume 83 80-99 fL Mean Corpuscular Hemoglobin 27 25-34 pg Mean Corpuscular Hemoglobin Concent 32 32-36 g/dL Red Cell Distribution Width 13.8 10.0-14.5 % Platelet Count 84 L 130-400 10^3/uL Mean Platelet Volume 12.3 H 9.0-12.2 fL Immature Granulocyte % (Auto) 1 % Neutrophils (%) (Auto) 73 42-75 % Lymphocytes (%) (Auto) 18 12-44 % Monocytes (%) (Auto) 7 0-12 % Eosinophils (%) (Auto) 0 0-10 % Basophils (%) (Auto) 0 0-10 % Neutrophils # (Auto) 10.9 H 1.8-7.8 10^3/uL Lymphocytes # (Auto) 2.7 1.0-4.0 10^3/uL Monocytes # (Auto) 1.1 H 0.0-1.0 10^3/uL Eosinophils # (Auto) 0.1 0.0-0.3 10^3/uL Basophils # (Auto) 0.0 0.0-0.1 10^3/uL Immature Granulocyte # (Auto) 0.1 0.0-0.1 10^3/uL Neutrophils % (Manual) 63 % Lymphocytes % (Manual) 25 % Monocytes % (Manual) 8 % Eosinophils % (Manual) 0 % Basophils % (Manual) 0 % Band Neutrophils 4 % Percent Immature Platelet Fraction 10.0 H 0.0-7.6 % Blood Morphology Comment NORMAL Sodium Level 133 L 135-145 MMOL/L Potassium Level 4.0 3.6-5.0 MMOL/L Chloride Level 104 98-107 MMOL/L Carbon Dioxide Level 23 21-32 MMOL/L Anion Gap 6 5-14 MMOL/L Blood Urea Nitrogen 15 7-18 MG/DL Creatinine 0.85 0.60-1.30 MG/DL Estimat Glomerular Filtration Rate 121 BUN/Creatinine Ratio 18 Glucose Level 95 70-105 MG/DL Calcium Level 9.1 8.5-10.1 MG/DL Corrected Calcium 9.3 8.5-10.1 MG/DL Magnesium Level 1.7 1.6-2.4 MG/DL Total Bilirubin 0.4 0.1-1.0 MG/DL Aspartate Amino Transf (AST/SGOT) 143 H 5-34 U/L Alanine Aminotransferase (ALT/SGPT) 243 H 0-55 U/L Alkaline Phosphatase 115 40-136 U/L Myoglobin 27.4 10.0-92.0 NG/ML Troponin I < 0.028 <0.028 NG/ML B-Type Natriuretic Peptide 20.2 <100.0 PG/ML Total Protein 6.7 6.4-8.2 GM/DL Albumin 3.7 3.2-4.5 GM/DL Urine Opiates Screen NEGATIVE NEGATIVE Urine Oxycodone Screen POSITIVE H NEGATIVE Urine Methadone Screen NEGATIVE NEGATIVE Urine Propoxyphene Screen NEGATIVE NEGATIVE Urine Barbiturates Screen NEGATIVE NEGATIVE Ur Tricyclic Antidepressants Screen NEGATIVE NEGATIVE Urine Phencyclidine Screen NEGATIVE NEGATIVE Urine Amphetamines Screen POSITIVE H NEGATIVE Urine Methamphetamines Screen POSITIVE H NEGATIVE Urine Benzodiazepines Screen POSITIVE H NEGATIVE Urine Cocaine Screen NEGATIVE NEGATIVE Urine Cannabinoids Screen POSITIVE H NEGATIVE My Orders Orders - RAI BUSTILLO MD Covid 19 Inhouse Test (02/10/22 08:59) Isolation Central Supply Req (02/10/22 08:59) Cbc With Automated Diff (02/10/22 08:59) Magnesium (02/10/22 08:59) Chest 1 View, Ap/Pa Only (02/10/22 08:59) Comprehensive Metabolic Panel (02/10/22 08:59) Myoglobin Serum (02/10/22 08:59) Protime With Inr (02/10/22 08:59) Partial Thromboplastin Time (02/10/22 08:59) O2 (02/10/22 08:59) Monitor-Rhythm Ecg Trace Only (02/10/22 08:59) Lipid Panel (02/11/22 06:00) Ed Iv/Invasive Line Start (02/10/22 08:59) Bnp Angie (02/10/22 08:59) Troponin I Angie (02/10/22 08:59) Aspirin Chewable Tablet (Baby Aspirin Ch (02/10/22 09:00) Drug Screen Stat (Urine) (02/10/22 09:01) Ekg Tracing (02/10/22 09:33) Manual Differential (02/10/22 09:40) Medications Given in ED Current Medications Medications Dose Ordered Sig/Jessie Route Start Time Stop Time Status Last Admin Dose Admin Aspirin 324 mg ONCE ONCE PO 02/10/22 09:00 02/10/22 09:01 DC 02/10/22 09:08 324 MG Vital Signs/I&O 02/10/22 08:40 Temp 36.7 Pulse 89 Resp 18 B/P (MAP) 117/63 (81) Pulse Ox 98 O2 Delivery Room Air Progress Progress Note : Time: 10:56 Progress Note I spoke with Hayder about his drug screen and liver function studies. He states that he ordered some THC cartridges off the "dark web". He [place]. He says that they (he and a friend) bought a test kit but used a cartridge before they tested. His friend called him and told him to throw away the cartridges because they "had a bunch of shit in them". Hayder states that he did not think his drug screen would be positive for anything illicit. He is quite panicked because his primary care doctor drug screens him before giving him his Suboxone. He is not due to test until 02 March. He states that he believes it will be out of his system by then. He insists that this was not an intentional relapse. He says that he has been "clean" for 2-1/2 years and has only had 1 or 2 slips. He does not have a therapist. He is apprehensive about local therapist because his mom works locally as a therapist. I strongly encouraged him to reach out to either [facility] or [facility]. I really believe that he needs ongoing emotional support to help him with his addictions. He seems to carry a lot of guilt about the choices he has made in life. I think potentially his symptoms of cold chills, diaphoresis, chest discomfort and nausea are related to the drugs in his system currently He also has quite elevated liver functions, I suspect that he might be drinking some alcohol as well. I encouraged him to get good sleep, hydrate and get some good nutrition. He has no evidence at this point of congestive heart failure related to the overdose he had 2-1/2 years ago. I did recommend that he follow- up with a concrete block layer to further evaluate this. He verbalized understanding. He is grateful for the care today. All questions are sought and answered. Initial ECG Impression Date: Feb 10, 2022 Initial ECG Impression Time: 08:47 Initial ECG Rate: 93 Initial ECG Rhythm: Normal Sinus Initial ECG Intervals: Normal Initial ECG Intervals AK interval 195 QRS 97 QTc 389 Comment No ectopy is noted, normal sinus rhythm without ST segment elevation or depression. Diagnostic Imaging Diagonstic Imaging: Xray Plain Films/CT/US/NM/MRI: chest Comments [facility], [facility] [place], [place] NAME: HAYDER ORTEGA [facility] REC#: [id number] PT STATUS: REG ER : 1990 PHYSICIAN: RAI BUSTILLO MD ADMIT DATE: 02/10/22/ER Draft Date of Exam:02/10/22 CHEST 1 VIEW, AP/PA ONLY INDICATION: Chest pain, fatigue, sweating. COMPARISON: 08/18/2016. FINDINGS: Lungs are clear. No failure, effusion or pneumothorax. IMPRESSION: Negative. Dictated on workstation # [id number] Dict: 02/10/22 0957 Trans: 02/10/[address] [place] [address] [id number] Interpreted by: CASEY DOSS Electronically signed by: Departure Impression Primary Impression: Polysubstance abuse Additional Impressions: OTHER STIMULANT ABUSE WITH WITHDRAWAL Transaminitis Disposition: 01 HOME, SELF-CARE Condition: Stable Departure-Patient Inst. Referrals: DAMION RODRIGUEZ DO (PCP/Family) Primary Care Physician Patient Instructions: VIRAL SYNDROME Add. Discharge Instructions: Drink plenty of fluids over the next 24 to 48 hours to stay well-hydrated. Follow good nutrition habits. Continue daily home medications as prescribed. You should try and seek out a therapist or some mental health support. I have attached contact information for [facility] as well as [facility]. Please reach out this week to try and find a therapist to help you sort through all of the stressors you have been experiencing recently. Return to the emergency department for any new, concerning or emergent complaints. [facility] ?[address] [place] [address] [facility] [phone] [address] [place] [address] Get Immediate Help [email or web address] or Call [phone] RAI BUSTILLO MD Feb 10, 2022 08:56
[2022-02-10] MEDS ORDERED: ASPIRIN 81 MG CHEW (CHILDREN'S ASA) PO ONE (09:00)
[2022-02-10 09:47] LABS: BASOPHILS % (AUTO) 0 % (0-10); MEAN CORPUSCULAR VOLUME 83 fL (80-99)
[2022-02-10 09:49] LABS: EOSINOPHILS # (AUTO) 0.1 10^3/uL (0.0-0.3); EOSINOPHILS % (AUTO) 0 % (0-10); HEMATOCRIT 37 % (40-54); LYMPHOCYTES # (AUTO) 2.7 10^3/uL (1.0-4.0); LYMPHOCYTES % (AUTO) 18 % (12-44); MEAN CORPUSCULAR HEMOGLOBIN 27 pg (25-34); MEAN CORPUSCULAR HGB CONC 32 g/dL (32-36); MEAN PLATELET VOLUME 12.3 fL (9.0-12.2); MONOCYTES # (AUTO) 1.1 10^3/uL (0.0-1.0); MONOCYTES % (AUTO) 7 % (0-12); NEUTROPHILS # (AUTO) 10.9 10^3/uL (1.8-7.8); NEUTROPHILS % (AUTO) 73 % (42-75); WHITE BLOOD COUNT 14.9 10^3/uL (4.3-11.0)
[2022-02-10 09:51] LABS: PLATELET COUNT 84 10^3/uL (130-400)
[2022-02-10 10:03] LABS: ALBUMIN 3.7 GM/DL (3.2-4.5)
[2022-02-10 10:05] LABS: CALCIUM 9.1 MG/DL (8.5-10.1)
[2022-02-10 10:06] LABS: TOTAL PROTEIN 6.7 GM/DL (6.4-8.2)
[2022-02-10 10:06] LABS: INR 1.2 (0.8-1.4); PROTHROMBIN TIME PATIENT 15.1 SEC (12.2-14.7)
[2022-02-10 10:08] LABS: BILIRUBIN,TOTAL 0.4 MG/DL (0.1-1.0)
[2022-02-10 10:10] LABS: CREATININE SERUM 0.85 MG/DL (0.60-1.30)
[2022-02-10 10:13] LABS: MAGNESIUM 1.7 MG/DL (1.6-2.4)
[2022-02-10 10:15] LABS: BAND NEUTROPHILS 4 %; BASOPHILS % (MANUAL) 0 %; EOSINOPHILS % (MANUAL) 0 %; LYMPHOCYTES % (MANUAL) 25 %; MONOCYTES % (MANUAL) 8 %; NEUTROPHILS % (MANUAL) 63 %; RBC MORPH NORMAL
--- NOTE | 2022-02-10 10:17 | Diagnostic Imaging Report ---
INDICATION: Chest pain, fatigue, sweating. COMPARISON: 08/18/2016. FINDINGS: Lungs are clear. No failure, effusion or pneumothorax. IMPRESSION: Negative. Dictated by: Dictated on workstation # [id number]
[2022-02-10 10:29] LABS: AMPHETAMINE SCREEN, URINE POSITIVE (NEGATIVE); BARBITURATE SCREEN URINE NEGATIVE (NEGATIVE); BENZODIAZEPINES SCREEN URINE POSITIVE (NEGATIVE); CANNABINOID SCREEN, URINE POSITIVE (NEGATIVE); COCAINE SCREEN URINE NEGATIVE (NEGATIVE); METHADONE STAT NEGATIVE (NEGATIVE); OPIATE SCREEN URINE NEGATIVE (NEGATIVE); OXYCODONE STAT POSITIVE (NEGATIVE); PROPOXYPHENE STAT NEGATIVE (NEGATIVE); TRICYCLIC ANTIDEPRESSANTS SCRE NEGATIVE (NEGATIVE)
[2022-02-10 11:11] VITALS: BP 101/59
== END 2022-02-10 11:11 | disposition home or self-care (01) ==
LOC: EDUNIT# 08:35 → ER 08:37
DX: F19.10 Other psychoactive substance abuse, uncomplicated (principal); F15.13 Other stimulant abuse with withdrawal; R74.01 Elevation of levels of liver transaminase levels; Z20.822 Contact with and (suspected) exposure to COVID-19
CPT/HCPCS: 36415; 71045; 80053; 80306; 83735; 83874; 83880; 84484; 85007; 85027; 85610; 85730; 87636; 93005; 93041